=== PATIENT | female | born 1950 | race Two or more races ===

== ENCOUNTER 2023-06-15 20:37 | Emergency (ER) | payer OTHER ==
[~2023-06-15] VITALS: Ht 162.6 cm; Wt 72.6 kg
[2023-06-15] MEDS ORDERED: COZAAR25 MG PO (20:51)
[2023-06-15] MEDS ORDERED: METFORMIN HCL500 M3 PO (20:51)
[2023-06-16] MEDS ORDERED: PERCOGESIC EXT1 EACH PO (00:15)
== END 2023-06-16 01:00 | disposition home or self-care (01) ==
LOC: ER 20:37
DX: S09.8XXA Other specified injuries of head, initial encounter (principal); W10.0XXA Fall (on)(from) escalator, initial encounter; Y93.89 Activity, other specified; Y92.018 Other place in single-family (private) house as the place of occurrence of the external cause; E11.9 Type 2 diabetes mellitus without complications; E78.00 Pure hypercholesterolemia, unspecified; I10 Essential (primary) hypertension; J32.0 Chronic maxillary sinusitis